=== PATIENT | female | born 1975 | race Two or more races ===

== ENCOUNTER 2021-09-23 09:32 | Emergency (ER) | payer BC, MEDICAID ==
[~2021-09-23] VITALS: Ht 167.6 cm; Wt 72.6 kg
[2021-09-23 09:47] VITALS: BP 116/67
--- NOTE | 2021-09-23 09:55 | NUR ---
DR CHILDS AT BEDSIDE FOR EVAL
--- NOTE | 2021-09-23 10:07 | NUR ---
Patient discharged to home in stable condition. Written and verbal after care instructions given. Patient verbalizes understanding of instruction.
== END 2021-09-23 10:07 | disposition home or self-care (01) ==
LOC: ER 09:39
DX: T21.25XA Burn of second degree of buttock, initial encounter (principal); T21.22XA Burn of second degree of abdominal wall, initial encounter; X12.XXXA Contact with other hot fluids, initial encounter; Y93.89 Activity, other specified; Y92.89 Other specified places as the place of occurrence of the external cause; Y99.8 Other external cause status